=== PATIENT | female | born 1975 | race Caucasian/White ===

== ENCOUNTER 2019-11-12 16:49 | Emergency (ER) | payer OTHER, BC, SELFPAY ==
[2019-11-12 17:07] VITALS: BP 113/61; PULSE 96; RESP 20; TEMP 36.7; O2SAT 99
[2019-11-12] MEDS: ALBUTEROL SULFATE NEB 2.5 MG/3 ML INH INHALATION (17:41)
[2019-11-12] MEDS: IPRATROPIUM BR 0.02% INH SOLN 0.5 MG/2.5 ML VIAL INHALATION (17:41)
--- NOTE | 2019-11-12 17:45 | ED.URI ---
HPI - URI/Sore Throat General Chief Complaint: Upper Respiratory Infection Stated Complaint: Cold/Flu symptoms Time Seen by Provider: 11/12/19 17:45 Source: patient and family Mode of arrival: ambulatory Limitations: no limitations History of Present Illness HPI Narrative: Patient presents with sudden onset of fever generalized body aches and pain cough. No abdominal pain no nausea no vomiting. Patient states she is normally healthy but was exposed to influenza from a coworker. MD elicited complaint: fever, cough and nasal congestion Onset (ago): day(s) Description of mucous: clear Able to tolerate fluids by mouth: Yes Exacerbating factors: nothing Relieving factors: nothing Associated symptoms: fever, chills and cough Treatments prior to arrival: acetaminophen Related Data Home Medications Medication Instructions Recorded Confirmed alprazolam 2 mg PO TID 08/26/19 11/12/19 aspirin [Aspir-81] 81 mg PO DAILY 08/26/19 11/12/19 fluoxetine [Prozac] 10 mg PO DAILY 08/26/19 11/12/19 metoprolol succinate 25 mg PO DAILY 08/26/19 11/12/19 Allergies Allergy/AdvReac Type Severity Reaction Status Date / Time codeine AdvReac Mild N/V, UPSET Unverified 11/12/19 17:18 STOMACH Review of Systems Review of Systems: Narrative: CONSTITUTIONAL: Denies fever, chills, or sweats. EYES: Denies visual changes, redness, or discharge. ENT: Denies sore throat, or otalgia. Reports generalized body aches runny nose and cough CARDIOVASCULAR: Denies chest pain, palpitations, or edema. RESPIRATORY: Denies cough or dyspnea. GASTROINTESTINAL: Denies abdominal pain, nausea, vomiting, or diarrhea. GENITOURINARY: Denies dysuria or hematuria. SKIN: Denies rash or itching. MUSCULOSKELETAL: Denies back pain, joint pain, or myalgia. NEUROLOGIC: Denies headache, numbness, or weakness. PSYCHIATRIC: Denies anxiety or depression. [facility] Past Medical History Medical History Hypertension TIA (transient ischemic attack) Surgical History Surgical History H/O: hysterectomy Social History Social History Social History: quit tobacco use 1 year ago Comments At time of signature, agree with nursing past medical, surgical, social and family history. There is no relevant family history pertinent to the presenting complaint Exam Narrative: Exam Narrative: GENERAL: Well-appearing, well-nourished, and in no acute distress. Generalized body aches and fever HEAD: Normocephalic, atraumatic. EYES: PERRLA and EOMI. ENT: Nares no epistaxis. Mucous membranes moist. Moderate amount of postnasal drainage bilateral TM dullness NECK: Supple. CHEST: Clear to auscultation. No respiratory distress. Wheezes bilateral prior to nebulizer treatment. Wheezes resolved after treatment patient states she feels much better. HEART: Regular rate and rhythm. No murmur heard. Normal peripheral pulses. ABDOMEN: Soft, nontender, nondistended, normal active bowel sounds. EXTREMITIES: Normal range of motion. No edema. SKIN: Warm, dry, no rash. NEURO: No focal deficits. Alert and oriented x3. [place] Coma Scale Eye Opening: Spontaneous 4 Agustín Coma Scale Motor: Obeys Commands 6 Agustín Coma Scale Verbal: Oriented 5 [place] Coma Scale Total 15 Const: General: no acute distress Orientation/consciousness: patient oriented x3 Course Vital Signs Vital signs: Vital Signs Temperature 36.7 C 11/12/19 17:07 Pulse Rate 96 11/12/19 17:07 Respiratory Rate 11/12/19 17:07 Blood Pressure 113/61 11/12/19 17:07 Pulse Oximetry 99 11/12/19 17:07 Temperature 36.7 C 11/12/19 17:07 Pulse Rate 95 11/12/19 17:54 Respiratory Rate 11/12/19 17:54 Blood Pressure 113/61 11/12/19 17:07 Pulse Oximetry 99 11/12/19 17:54 MDM - URI/Sore Throat MDM Narrative Medical decision making narrative:
[2019-11-12 17:54] VITALS: PULSE 95; RESP 20; O2SAT 99
[2019-11-12 17:55] VITALS: PULSE 102; RESP 18; O2SAT 99
== END 2019-11-12 18:00 | disposition home or self-care (01) ==
PROVIDERS: Emergency Provider Nurse Practitioner Family
DX: J11.1 Influenza due to unidentified influenza virus with other respiratory manifestations (principal); J06.9 Acute upper respiratory infection, unspecified
CPT/HCPCS: 87804; 94640; 99213; G0463

== ENCOUNTER 2022-02-15 10:51 | Emergency (ER) | payer OTHER, SELFPAY ==
[2022-02-15 11:06] VITALS: BP 103/65; PULSE 64; RESP 14; TEMP 36.6; O2SAT 100
--- NOTE | 2022-02-15 11:14 | ED.HEATRA ---
HPI - Head Injury General Chief complaint: Head Injury Stated complaint: Fall Injury/Head Time Seen by Provider: 02/15/22 11:01 Source: patient and RN notes reviewed History of Present Illness HPI Narrative: Patient is a 46-year-old female who presents the urgent care with complaints of nausea and headache. Patient also is reporting some posterior neck pain. Patient states that she was attempting to fill up her tires yesterday at the gas station and tripped over the curb and slamming her head into a brick wall. Patient states that she did believe she lost consciousness and has gone to the emergency room for CT of her head and neck which were negative. Patient has a history of neck fusion however the fusion looked fine. Patient states that this morning she has had some nausea but denies of any vomiting. Patient has not been using anything for her pain and states that she does not really like to take medication . No other acute complaints. Denies of blurry vision. No acute distress noted. Patient aware of the plan of care. Some parts of this dictation were generated by voice recognition software and may contain typographical and/or grammatical inaccuracies. Related Data Home Medications Medication Instructions Recorded Confirmed alprazolam 2 mg PO TID 08/26/19 11/12/19 fluoxetine 20 mg PO BID 02/15/22 02/15/22 Allergies Allergy/AdvReac Type Severity Reaction Status Date / Time codeine AdvReac Mild N/V, UPSET Unverified 02/15/22 11:25 STOMACH Review of Systems Review of Systems: CONSTITUTIONAL: Denies fever, chills, or sweats. EYES: Denies visual changes, redness, or discharge. ENT: Denies rhinorrhea, congestion, sore throat, or otalgia. CARDIOVASCULAR: Denies chest pain, palpitations, or edema. RESPIRATORY: Denies cough or dyspnea. GASTROINTESTINAL: Reports of nausea without vomiting or diarrhea GENITOURINARY: Denies dysuria or hematuria. SKIN: Denies rash or itching. MUSCULOSKELETAL: Denies back pain, joint pain, or myalgia. NEUROLOGIC: Reports of headache All other systems reviewed are negative, except as documented in HPI. [facility] Past Medical History Medical History (Updated 02/15/22 @ 11:34 by PRISCA Magana) Hypertension TIA (transient ischemic attack) Surgical History Surgical History H/O: hysterectomy Social History Social History Social History: quit tobacco use 1 year ago Comments At the time of my signature, I reviewed and agree with the nursing past medical, surgical, social, and family history. There is no relevant family history pertinent to the patient complaint. Exam Narrative: GENERAL: This is a well-nourished, well-developed patient, in no apparent distress. HEAD: normocephalic, atraumatic. EYES: PERRL. Sclera clear/white. Vision is grossly intact. EARS: External ears normalsal discharge, nares without redness, no rhinorrhea. THROAT: Mucous membranes moist NECK: Mild posterior neck tenderness. Range of motion limited due to effusion and pain CARDIOVASCULAR: Regular rate and rhythm without murmurs, gallops, or rubs. RESPIRATORY: Clear to auscultation. Breath sounds equal bilaterally. No wheezes, rales, or rhonchi. SKIN: warm, intact with no suspicious lesions or rash, good texture and turgor. NEURO: awake, alert, and oriented to person, place and time. There were no obvious focal neurologic abnormalities. EXTREMITIES: No clubbing, cyanosis, or edema. Course Course Level of Care: Express Care Visit Vital Signs Vital signs: Vital Signs Temperature 97.8 F 02/15/22 11:06 Pulse Rate 64 02/15/22 11:06 Respiratory Rate 14 02/15/22 11:06 Blood Pressure 103/65 02/15/22 11:06 Pulse Oximetry 100 02/15/22 11:06 Temperature 97.8 F 02/15/22 11:06 Pulse Rate 64 02/15/22 11:06 Respiratory Rate 14 02/15/22 11:06 Blood Pressure 103/65 0
== END 2022-02-15 11:35 | disposition home or self-care (01) ==
PROVIDERS: Emergency Provider Nurse Practitioner Family
DX: F07.81 Postconcussional syndrome (principal); I10 Essential (primary) hypertension; Z86.73 Personal history of transient ischemic attack (TIA), and cerebral infarction without residual deficits
CPT/HCPCS: 99213; G0463